=== PATIENT | male | born 1980 | race Caucasian/White ===

== ENCOUNTER 2018-03-03 14:06 | Emergency (ER) | payer BC ==
[2018-03-03] MEDS ORDERED: IBUPROFEN 400 MG TABLET (FP) PO ONE ×2 (14:12→14:44)
--- NOTE | 2018-03-03 14:12 | PDOC ---
Rapid Medical Evaluation Time Seen by Provider: 03/03/18 14:08 Medical Evaluation: 03/03/18 14:08 I have performed a brief in-person evaluation of this patient. The patient presents with a chief complaint of: right ankle pain since awaking Pertinent physical exam findings: No tenderness to right knee, right medial and lateral malleolus. Tenderness to base of first metatarsal of right foot. No calcaneal tenderness. 2+ DP pulse I have ordered the following: Motrin, Xrays The patient will proceed to the ED for further evaluation. Discharge Disposition - Diagnosis Right foot pain - Referrals - Patient Instructions - Post Discharge Activity
[2018-03-03 14:13] VITALS: BP 127/69; PULSE 68; TEMP 98.6; BMI 33.3
--- NOTE | 2018-03-03 15:11 | PDOC ---
History of Present Illness - General Chief Complaint: Injury Stated Complaint: rt.ankle pain Time Seen by Provider: 03/03/18 14:08 - History of Present Illness Initial Comments: 03/03/18 15:07 37-year-old male without comorbidities presents for evaluation of atraumatic right ankle pain times one day without associated systemic symptoms. Past History - Past Medical History Allergies/Adverse Reactions: Allergies Allergy/AdvReac Type Severity Reaction Status Date / Time No Known Allergies Allergy Verified 03/03/18 14:14 Home Medications: Ambulatory Orders Methylprednisolone [Medrol Dose Bon] 4 mg PO ASDIR #21 tablet 03/03/18 COPD: No CHF: No Disorders: No Kidney Stones: No Lung CA: No - Surgical History Cardiac Surgery: No Cholecystectomy: No - Immunization History Immunization Up to Date: No - Suicide/Smoking/Psychosocial Hx Smoking History: Never smoked Have you smoked in the past 12 months: No Information on smoking cessation initiated: No Hx Alcohol Use: No Drug/Substance Use Hx: No Substance Use Type: None Review of Systems - Review of Systems Musculoskeletal: Yes: See HPI, Joint Pain *Physical Exam - Vital Signs Last Vital Signs Temp Pulse Resp BP Pulse Ox 98.6 F 68 18 127/69 99 03/03/18 14:11 03/03/18 14:11 03/03/18 14:11 03/03/18 14:11 03/03/18 14:11 - Physical Exam Comments: 03/03/18 15:08 Right ankle skin color and temperature are normal there is no swelling he has full range of motion with discomfited terminal plantarflexion and dorsiflexion no evidence of instability or tenderness at any focal location he has no gross sensorimotor deficits is neurovascularly intact I Are soft and nontender. ED Treatment Course - Medications Given in the ED: ED Medications Discontinued Medications Generic Name Dose Route Start Last Admin Trade Name Freq PRN Reason Stop Dose Admin Ibuprofen 800 mg 03/03/18 14:12 03/03/18 14:45 Motrin - PO 03/03/18 14:13 800 mg ONCE ONE Administration Medical Decision Making - Medical Decision Making 03/03/18 15:08 Sudden onset of joint pain atraumatic most likely gout versus pseudogout Medrol Dosepak follow-up with rheumatology *DC/Admit/Observation/Transfer Diagnosis at time of Disposition: Gout attack Diagnosis at time of Disposition: (Ruled Out): Right foot pain - Discharge Dispostion Disposition: HOME Condition at time of disposition: Stable Decision to Admit order: No - Prescriptions Prescriptions: Methylprednisolone [Medrol Dose Bon] 4 mg PO ASDIR #21 tablet - Referrals Referrals: Cecelia Osman MD [Staff Physician] - Cory Cuevas MD [Non Staff, Medical] - Jarrod Bhakta MD [Non Staff, Medical] - Janusz Yeung MD [Non Staff, Medical] - Aurelio Chino [Non Staff, Medical] - Roman Tam MD [Non Staff, Medical] - Micaela Solano MD [Non Staff, Medical] - Zoey Farmer MD [Non Staff, Medical] - Lb Bertrand MD [Staff Physician] - Caroline Beasley [Non Staff, Medical] - Shira Seals [Non Staff, Medical] - Alban Barrientos MD [Non Staff, Medical] - Cleve Otero MD [Non Staff, Medical] - Jackie Peace MD [Non Staff, Medical] - Erik Mcleod MD [Staff Physician] - - Patient Instructions Printed Discharge Instructions: Gout, DI for Gout Additional Instructions: Return to the emergency room should symptoms worsen or go unresolved. Please take the Medrol Dosepak as directed if she needs additional medication on top of that you take some Tylenol as directed follow-up with rheumatology in 2-3 days for further evaluation and treatment options. Do not take any Advil Motrin or Aleve while on the Medrol Dosepak - Post Discharge Activity Forms/Work/School Notes: Back to Work
== END 2018-03-03 15:25 | disposition home or self-care (01) ==
LOC: JERFT 14:06
DX: M10.9 Gout, unspecified (principal)
CPT/HCPCS: 73610-TC-RT-FY; 73630-TC-RT-FY; 99281-25